=== PATIENT | male | born 1960 | race Caucasian/White ===

== ENCOUNTER 2023-03-19 08:05 | Outpatient (OUT) | payer BC, SELFPAY ==
--- NOTE | 2023-03-19 08:32 | XR_ITS ---
[address] [address] Patient Name: CASSIE LINTON MRN: [id number] date: 1960 Sex: M Assigned Patient Location: LAB Current Patient Location: LAB Accession/Order Number: [id number] Exam Date: 03/19/2023 08:38 Report Date: 03/19/2023 09:18 At the request of: SHAIKH CHRISTIAN Procedure: XR chest 2V XR chest 2V COMPARISON: November 2022 chest x-ray CLINICAL HISTORY: Dyspnea On Exertion R05.09 TECHNIQUE: 2 views FINDINGS: There is a normal cardiac and mediastinal contour. The pulmonary vascular pattern is normal. The lungs are clear and the pleural margins are sharp. There are no significant skeletal abnormalities. XR/XR chest 2V IMPRESSION: NO ACUTE RADIOGRAPHIC FINDINGS. Electronically authenticated by: NATIVIDAD PAT Date: 03/19/2023 09:18
[2023-03-19 08:40] LABS: Basophils Percent Auto 0.4 % (0.2-2.0); Eosinophils Absolute Auto 0.1 10^3/uL (0.0-0.7); Eosinophils Percent Auto 1.3 % (0.9-7.0); Hemoglobin 16.4 g/dL (14.0-18.0); Immature Granulocytes Abs Auto 0.01 10^3/uL (0.00-0.03); Immature Granulocytes Pct Auto 0.2 % (0.0-0.5); Lymphocytes Absolute Auto 1.3 10^3/uL (1.2-3.8); Lymphocytes Percent Auto 28.1 % (20.5-60.0); Mean Corpuscular HGB Conc 33.5 g/dL (29.9-35.2); Mean Corpuscular Hemoglobin 29.7 pg (25.9-34.0); Mean Corpuscular Volume 88.6 fL (80.0-94.0); Mean Platelet Volume 11.6 fL (9.5-13.5); Monocytes Absolute Auto 0.4 10^3/uL (0.3-0.8); Monocytes Percent Auto 7.9 % (1.7-12.0); Neutrophils Absolute Auto 2.8 10^3/uL (1.4-6.5); Neutrophils Percent Auto 62.1 % (43.0-75.0); Platelet Count 198 10^3/uL (150-450); Red Blood Count 5.53 10^6/uL (4.70-6.10); Red Cell Distribution Width 11.8 % (11.0-15.0); White Blood Count 4.6 10^3/uL (4.0-11.0)
[2023-03-19 09:13] LABS: Alanine Aminotransferase 33 U/L (16-63); Albumin Globulin Ratio 0.9; Albumin Level 3.6 g/dL (3.4-5.0); Alkaline Phosphatase 87 U/L (46-116); Anion Gap 11.8; Aspartate Amino Transferase 23 U/L (15-37); BUN Creatinine Ratio 18.2; Bilirubin Total 0.4 mg/dL (0.2-1.0); Carbon Dioxide 33.6 mmol/L (21.0-32.0); Chloride 100 mmol/L (98-107); Estimated GFR (African America >60 (>=60); Estimated GFR (Non-African Ame >60 (>=60); Globulin 3.9 g/dL; Glucose 99 mg/dL (74-106); Potassium 3.4 mmol/L (3.5-5.1); Sodium 142 mmol/L (136-145); Total Protein 7.5 g/dL (6.4-8.2)
== END 2023-03-19 08:06 | disposition home or self-care (01) ==
PROVIDERS: PCP Family Medicine; Visit Provider Internal Medicine
DX: R06.09 Other forms of dyspnea (principal)
CPT/HCPCS: 36415; 71046; 80053; 85025

== ENCOUNTER 2023-03-20 07:51 | Outpatient (OUT) | payer BC, SELFPAY ==
--- NOTE | 2023-03-20 | ECG_ITS ---
[facility] Test Date: 2023-03-20 Pat Name: CASSIE LINTON Department: Room: - Gender: Male [employer]: : 1960 Requested By: GOMEZ GARCÍA Order Number: [id number] Reading MD: JENNIFER DE LA PAZ Measurements Intervals [place] Rate: 59 P: 42 VT: 142 QRS: -11 QRSD: 99 T: 50 QT: 422 QTc: 420 Interpretive Statements SINUS BRADYCARDIA No previous ECG available for comparison Electronically Signed On 03-21-2023 6:54:11 EST by JENNIFER DE LA PAZ
== END 2023-03-20 07:52 | disposition home or self-care (01) ==
LOC: CARD 07:52
PROVIDERS: PCP Family Medicine; Visit Provider Internal Medicine
DX: R06.09 Other forms of dyspnea (principal)
CPT/HCPCS: 93005

== ENCOUNTER 2024-08-28 14:30 | Outpatient (OUT) | payer BC, SELFPAY ==
--- NOTE | 2024-08-28 14:35 | XR_ITS ---
[address] [address] Patient Name: CASSIE LINTON MRN: [id number] date: 1960 Sex: M Assigned Patient Location: [facility] Current Patient Location: [facility] Accession/Order Number: [id number] Exam Date: 08/28/2024 14:50 Report Date: 08/28/2024 14:51 At the request of: GOMEZ GARCÍA MD Procedure: XR lumbar spine 2-3V LUMBAR SPINE - 3 views CLINICAL HISTORY: Chronic Bilateral Low Back Pain COMPARISON: None FINDINGS: Vertebral body heights appear maintained. Moderate disc space narrowing L5-S1. Diffuse facet joint degenerative changes. XR/XR lumbar spine 2-3V IMPRESSION: MODERATE DISC SPACE NARROWING L5-S1 WITH FACET JOINT DEGENERATIVE CHANGE. Impression dictated by: Eitan Wen Jr., D.OJhonathan08/28/2024 2:51 PM Dictation Location: [place] [address] Electronically authenticated by: [id number] Y Date: 08/28/2024 14:51
== END 2024-08-28 14:31 | disposition home or self-care (01) ==
LOC: RAD 14:31
PROVIDERS: PCP Family Medicine; Visit Provider Family Medicine
DX: M54.50 Low back pain, unspecified (principal); G89.29 Other chronic pain; M51.369 Other intervertebral disc degeneration, lumbar region without mention of lumbar back pain or lower extremity pain
CPT/HCPCS: 72100